=== PATIENT | male | born 1950 | race Caucasian/White ===

== ENCOUNTER 2025-07-09 08:15 | Inpatient (IN) | payer MEDICARE, OTHER ==
[2025-07-09 07:00] VITALS: BP 153/92; TEMP 97.9; O2SAT 99
[2025-07-09 08:00] VITALS: BP 153/92; TEMP 97.9; O2SAT 96
[2025-07-09] MEDS ORDERED: LIDOCAINE 2% JEL UROJET 10 ML MM ONE (09:34)
[2025-07-09] MEDS ORDERED: MIDAZOLAM HCL 2 MG/2ML VIAL ONE (09:34)
[2025-07-09] MEDS ORDERED: FENTANYL PF 100MCG/2ML AMPUL ONE (09:34)
[2025-07-09] MEDS ORDERED: OXYMETAZOLINE HCL NASAL SPRAY 30 ML BOTTLE NS ONE (09:34)
[2025-07-09] MEDS ORDERED: FAMOTIDINE/PF INJ 20 MG/2 ML VIAL IV ONE (09:35)
[2025-07-09] MEDS ORDERED: ROCURONIUM BROMIDE 50 MG/5 ML ONE (09:35)
== END 2025-07-09 10:10 | disposition home or self-care (01) | DRG 159 ==
LOC: DS 08:15 → MED 08:17
PROVIDERS: ADMIT Dentist Oral and Maxillofacial Surgery; ATTEND Dentist Oral and Maxillofacial Surgery
DX: M27.2 Inflammatory conditions of jaws (principal); D16.4 Benign neoplasm of bones of skull and face; E11.9 Type 2 diabetes mellitus without complications; M27.49 Other cysts of jaw; R97.20 Elevated prostate specific antigen [PSA]; Z53.29 Procedure and treatment not carried out because of patient's decision for other reasons
CPT/HCPCS: 71045-TC; 82962-TC; G0378; J1308; J2250; J3010; J3490